=== PATIENT | female | born 1945 | race Caucasian/White ===

== ENCOUNTER 2021-01-25 06:59 | Emergency (ER) | payer MEDICARE, OTHER ==
[~2021-01-25] VITALS: Ht 162.6 cm; Wt 58.1 kg
[2021-01-25] MEDS ORDERED: METO-357 PO (07:10)
[2021-01-25] MEDS ORDERED: ATOR20TA PO (07:10)
[2021-01-25] MEDS ORDERED: LOSA25TA27 PO (07:10)
[2021-01-25] MEDS ORDERED: HYDR25TA4 PO (07:10)
--- NOTE | 2021-01-25 07:15 | NUR ---
Dr Quiñones at the bedside for MSE.
[2021-01-25] MEDS: CEphaleXIN 500 MG CAPSULE PO ONE (07:24)
[2021-01-25] MEDS: PHENAZOPYRIDINE HCL 100 MG TABLET PO ONE (07:24)
[2021-01-25] MEDS ORDERED: PHENAZOPYRIDINE HCL 100 MG TABLET ONE (07:27)
[2021-01-25] MEDS ORDERED: CEphaleXIN 500 MG CAPSULE ONE (07:27)
[2021-01-25] MEDS ORDERED: CEPH500C2 PO (07:34)
[2021-01-25] MEDS ORDERED: PHEN97.517 PO (07:34)
[2021-01-25 07:42] VITALS: BP 145/90
--- NOTE | 2021-01-25 07:42 | NUR ---
Patient discharged to home in stable condition. Written and verbal after care instructions given. Patient verbalizes understanding of instructions. Stressed follow up or return to ER for worsening s/s.
[2021-01-25 08:19] LABS: *CLARITY,URINE BLOODY (CLEAR); *COLOR,URINE RED (YELLOW)
[2021-01-25 08:22] LABS: *BLOOD, URINE LARGE (NEGATIVE)
[2021-01-25 08:23] LABS: LEUKOCYTE ESTERASE ,URINE NEGATIVE (NEGATIVE)
[2021-01-25 08:24] LABS: *BILIRUBIN,URIN NEGATIVE (NEGATIVE); *KETONES,URINE NEGATIVE (NEGATIVE); NITRITE, URINE NEGATIVE (NEGATIVE); UGLUCOSE NEGATIVE (NEGATIVE)
[2021-01-25 08:25] LABS: *UROBILINOGEN,URINE 0.2 E.U./dl (NORMAL)
[2021-01-25 08:32] LABS: MUCUS,URINE FEW /LPF (0-FEW); SQUAMOUS EPITHELIAL CELL,UR NONE SEEN /HPF (NONE SEEN)
[2021-01-25 08:33] LABS: BACTERIA,URINE MANY /HPF (NONE SEEN); RBC,URINE 80-100 /HPF (0-3); WBC,URINE NONE SEEN /HPF (0-3)
--- NOTE | 2021-01-28 16:05 | NUR ---
called patient, she is feeling better. calling in prescription for diflucan to the pharmacy for her
== END 2021-01-25 07:43 | disposition home or self-care (01) ==
LOC: ER 07:01
DX: N39.0 Urinary tract infection, site not specified (principal); R31.0 Gross hematuria; I10 Essential (primary) hypertension; E78.00 Pure hypercholesterolemia, unspecified; Z79.899 Other long term (current) drug therapy
CPT/HCPCS: 87086; A4663